=== PATIENT | male | born 1985 | race Caucasian/White ===

== ENCOUNTER 2017-02-25 16:01 | Emergency (ER) | payer SELFPAY ==
[~2017-02-25] VITALS: Ht 165.1 cm; Wt 70.0 kg
[~2017-02-25 16:01] MED LIST: IBUP600T26 PO; PENI500T PO; ULTR50TA PO
[2017-02-25 16:02] VITALS: BP 139/70; PULSE 85; RESP 20; TEMP 98.3; O2SAT 95
[2017-02-25] MEDS ORDERED: AMOX500T PO (19:23)
[2017-02-25] MEDS ORDERED: DICL50TA3 PO (19:23)
--- NOTE | 2017-02-25 19:25 | PD ---
HPI Chief Complaint: Oral / Dental Pain or Problem Time Seen by Provider: 19:23 Travel History International Travel<30 days: No Contact w/Intl Traveler<30days: No Traveled to known affect area: No History of Present Illness HPI 31-year-old white male presents to emergency department with complaints of right upper third molar pain for the past week. He has had a dental cavity in this tooth for some time. He just finished a course of antibiotics a few weeks ago. States the pain is moderate. Worse with eating. No palliative activity. No fever chills. No earache. No sore throat. PFSH Past Medical History Medical History: Denies Significant Hx Diminished Hearing: No Tetanus Vaccination: Unknown Influenza Vaccination: No Past Surgical History Surgical History: No Previous Surgery Social History Alcohol Use: No Tobacco Use: No Substance Use: No Allergies-Medications (Allergen,Severity, Reaction): Coded Allergies: No Known Allergies (Unverified , 02/25/17) Reported Meds & Prescriptions Reported Meds & Active Scripts Active No Active Prescriptions or Reported Medications Review of Systems Except as stated in HPI: all other systems reviewed are Neg Physical Exam Narrative GENERAL: Well-developed, well-nourished in no acute distress. Nontoxic appearing. HEAD: Normocephalic, atraumatic. EYES: Pupils equal round and reactive. Extraocular motions intact. No scleral icterus. No injection or drainage. ENT: TMs clear without erythema. The external auditory canals clear. Nose: clear . Posterior pharynx is pink and moist. No tonsillar edema or exudate. Uvula midline. Airway patent. Patient has a large dental carry in tooth #1. There are some gingival erythema and edema. NECK: Trachea midline.Supple, nontender, moves head freely. No central bony tenderness or spasm. CARDIOVASCULAR: Regular rate and rhythm without murmurs, gallops, or rubs. RESPIRATORY: Clear to auscultation. Breath sounds equal bilaterally. No wheezes , rales, or rhonchi. GASTROINTESTINAL: Abdomen soft, non-tender, nondistended. No hepato-splenomegaly , or palpable masses. No guarding. EXTREMITIES: No clubbing, cyanosis, or edema. No joint tenderness, effusion, or edema noted. BACK: Nontender without deformity or crepitance. No flank tenderness. Data Data Last Documented VS Vital Signs Date Time Temp Pulse Resp B/P Pulse Ox O2 Delivery O2 Flow Rate FiO2 02/25/17 16:02 98.3 85 20 139/70 95 Room Air Orders Amoxicillin (Trimox) (02/25/17 19:30) Acetamin-Hydrocod 325-5 Mg ([place] 5-325 (02/25/17 19:30) MDM Medical Decision Making Medical Screen Exam Complete: Yes Emergency Medical Condition: Yes Medical Record Reviewed: Yes Differential Diagnosis MDM: Moderate Differential diagnoses: Dental abscess, dental caries, osteitis, cellulitis Narrative Course This is dental caries. Dentalgia. Patient's given amoxicillin 500 mg Lortab 5 a grams. Diagnosis Primary Impression: Dental caries Additional Impression: Dentalgia Patient Instructions: Narcotic given in the ED, General Instructions Additional Instructions: Rest. Saltwater gargles. Llewellyn oil on cotton balls. Diclofenac and amoxicillin. follow-up with a dentist as soon as possible. And return to the ER if any problems. Med/Other Pt SpecificInfo: Prescription(s) given Scripts Diclofenac Sodium DR 50 Mg Tabdr50 Mg PO TID #30 TAB Prov:Jacob Kimball MD 02/25/17 Amoxicillin 500 Mg Tab1,000 Mg PO BID #40 TAB Prov:Jacob Kimball MD 02/25/17 Disposition: 01 DISCHARGE HOME Condition: Stable Reji Pete Feb 25, 2017 19:25
[2017-02-25] MEDS ORDERED: ACETAMINOPHEN/HYDROcodone 325 MG/5 MG TAB PO ONE (19:30)
[2017-02-25] MEDS ORDERED: AMOXICILLIN (TRIHYDRATE) 500 MG CAP PO ONE (19:30)
== END 2017-02-25 19:45 | disposition home or self-care (01) ==
LOC: NETRI 16:01
DX: K02.9 Dental caries, unspecified (principal)
CPT/HCPCS: 99282